=== PATIENT | female | born 1945 | race Caucasian/White ===

== ENCOUNTER → 2024-01-20 12:44 | Outpatient (CLI) | payer MEDICARE, SELFPAY ==
--- NOTE | 2024-01-20 12:53 | DI.RAD.S_ITS ---
PROCEDURE: XR KUB INDICATIONS: Kidney stone, patient has lap band and possible gallstones TECHNIQUE: One view of the abdomen acquired. COMPARISON: None. FINDINGS: Surgical changes and devices: Gastric band surgery, phi angle of 60? (within normal limits). Bowel: Bowel gas pattern is normal. Soft tissues: No suspicious abdominal calcifications. Visualized solid organ contours appear normal in size. Cholelithiasis. Bones: No suspicious bony lesions. IMPRESSION: Cholelithiasis. No nephrolithiasis identified. Dictated by: Marck Ortiz M.D. on 01/20/2024 at 13:57 Approved by: Marck Ortiz M.D. on 01/20/2024 at 13:58
== END ==
PROVIDERS: PCP Internal Medicine; Referring Provider Specialist; Visit Provider Specialist
DX: N20.0 Calculus of kidney (principal)
CPT/HCPCS: 74018